=== PATIENT | male | born 1985 | race Caucasian/White ===

== ENCOUNTER 2018-06-05 21:01 | Emergency (ER) | payer MEDICAID, OTHER ==
[~2018-06-05] VITALS: Ht 177.8 cm; Wt 110.6 kg
[~2018-06-05 21:01] MED LIST: CARVEDILOL; LISI40TA4
[2018-06-05 21:38] LABS: BASOPHILS % 0.9 % (0.0-2.0); EOSINOPHILS % 4.9 % (0.0-5.0); HEMATOCRIT. 52.2 % (42.0-52.0); HEMOGLOBIN. 17.8 g/dL (14.0-18.0); LYMPHOCYTES % 26.9 % (20.0-50.0); MEAN CORPUSCULAR HEMOGLOBIN 30.3 pg (28.0-32.0); MEAN PLATELET VOLUME 9.7 fl (7.4-10.4); MONOCYTES % 8.2 % (2.0-8.0); NEUTROPHILS % 59.1 % (40.0-76.0); PLATELET 223 x1000/uL (130-400); RED BLOOD CELL COUNT 5.87 mill/uL (4.7-6.1); RED CELL DISTRIBUTION WIDTH 13.8 % (11.6-14.6)
[2018-06-05 21:42] LABS: CHLORIDE 104 mEq/L (98-107)
[2018-06-05 21:43] LABS: PROTHROMBIN TIME 10.4 sec (9.1-11.1)
[2018-06-05 21:46] LABS: ETHANOL BLOOD < 10 mg/dL
[2018-06-05 21:49] LABS: LDL CHOLESTEROL 140 mg/dL (5-100)
[2018-06-05 21:50] LABS: CREATINE KINASE 268 IU/L (39-308)
[2018-06-05] MEDS ORDERED: ALTEPLASE 81 MG in CONTAINER,EMPTY 1 BAG IV NR (22:15)
[2018-06-05] MEDS ORDERED: ASPIRIN 325MG EC TABLET PO ONE (22:15)
[2018-06-05] MEDS ORDERED: ALTEPLASE 100MG/VIAL IV ONE (22:30)
[2018-06-05 23:50] VITALS: BP 146/82
[2018-06-06] MEDS ORDERED: IOHEXOL-350 100 ML BOTTLE ONE (00:32)
== END 2018-06-06 00:22 | disposition short-term general hospital (02) ==
LOC: ER 21:01 → CANBEDREQ 06-06 01:06
DX: I63.9 Cerebral infarction, unspecified (principal); I11.0 Hypertensive heart disease with heart failure; I50.9 Heart failure, unspecified; R94.39 Abnormal result of other cardiovascular function study; I69.354 Hemiplegia and hemiparesis following cerebral infarction affecting left non-dominant side; Z90.49 Acquired absence of other specified parts of digestive tract
CPT/HCPCS: 36415; 70450; 70496; 71045; 80053; 82550; 83721; 84443; 84484; 85025; 85610; 93005; 99285; G0482; J2997; Q9967; J7060